=== PATIENT | female | born 1975 | race Caucasian/White ===

== ENCOUNTER → 2018-08-09 | Outpatient (CLI) | payer OTHER ==
--- NOTE | 2018-08-09 14:49 | MM ---
Reason for exam: screening (asymptomatic). Baseline mammogram. History: Family history of breast cancer in maternal grandmother. Took hormonal contraceptives beginning at age 18. Physical Findings: Nurse did not find any significant physical abnormalities on exam. MG Screening Mammo w CAD Bilateral CC and MLO view(s) were taken. The breast tissue is heterogeneously dense. This may lower the sensitivity of mammography. No significant findings. These results were verbally communicated with the patient and result sheet given to the patient on 08/09/18. ASSESSMENT: Benign, BI-RAD 2 RECOMMENDATION: Routine screening mammogram of both breasts in 1 year.
== END | disposition home or self-care (01) ==
LOC: RADMAMWWP 14:03
PROVIDERS: ATTEND Family Medicine
DX: Z12.31 Encounter for screening mammogram for malignant neoplasm of breast (principal)
CPT/HCPCS: 77067

== ENCOUNTER → 2019-08-16 | Outpatient (CLI) | payer OTHER ==
--- NOTE | 2019-08-20 09:10 | MM ---
Reason for exam: screening (asymptomatic). Last mammogram was performed 1 year ago. History: Family history of breast cancer in maternal grandmother. Took hormonal contraceptives beginning at age 18. Physical Findings: A clinical breast exam by your physician is recommended on an annual basis and results should be correlated with mammographic findings. MG Screening Mammo w CAD Bilateral CC and MLO view(s) were taken. Prior study comparison: August 09, 2018, bilateral MG screening mammo w CAD. There are scattered fibroglandular densities. No significant changes when compared with prior studies. ASSESSMENT: Benign, BI-RAD 2 RECOMMENDATION: Routine screening mammogram of both breasts in 1 year.
== END | disposition home or self-care (01) ==
LOC: RADMAMWWP 16:30
PROVIDERS: ATTEND Family Medicine
DX: Z12.31 Encounter for screening mammogram for malignant neoplasm of breast (principal)
CPT/HCPCS: 77067

== ENCOUNTER → 2022-12-28 | Outpatient (CLI) | payer OTHER ==
--- NOTE | 2022-12-28 19:15 | US ---
EXAMINATION TYPE: US transvaginal DATE OF EXAM: 12/28/2022 COMPARISON: NONE CLINICAL INDICATION: Female, 47 years old with history of N92.1 EXCESSIVE AND FREQUENT MENSTRUATION; very heavy periods since last 2006, last 2 births via TECHNIQUE: Transvaginal (TVTransvaginal sonographic images were medically necessary to better assess the following anatomy: Endometrium Date of LMP: 12/26/2022 EXAM MEASUREMENTS: Uterus: 9.1x4.3x6.2cm Endometrial Stripe: 1.9cm Right Ovary: 3.6x2.3x2.4cm Left Ovary: 3.4x3.3x3.0cm 1. Uterus: Retroverted. Extrusion Press Supervisor notes: Partially obscured by bowel and shadowing, difficult to a ssess due to retroversion. Small 5 mm cervical nabothian cysts. 2. Endometrium: thickened, heterogenous, appears to have vascularity within 3. Right Ovary: wnl 4. Left Ovary: anechoic area measured: 3.7x2.2x3.2cm 5. Bilateral Adnexa: wnl 6. Posterior cul-de-sac: wnl IMPRESSION: 1. Heterogeneous and thickened endometrium at 1.9 cm. This should correspond to the late secretory ph ase of menstrual cycle. Underlying endometrial hyperplasia is possible. Follow-up in 6-8 weeks to piero ssess thickness. 2. A 3.7 cm dominant follicle or functional cyst of the left ovary.
== END | disposition home or self-care (01) ==
LOC: RADUSWWP 13:25
PROVIDERS: ATTEND Family Medicine
DX: N92.1 Excessive and frequent menstruation with irregular cycle (principal); N83.202 Unspecified ovarian cyst, left side; R93.89 Abnormal findings on diagnostic imaging of other specified body structures
CPT/HCPCS: 76830

== ENCOUNTER → 2023-03-18 | Outpatient (CLI) | payer BC, OTHER ==
--- NOTE | 2023-03-18 10:44 | US ---
EXAMINATION TYPE: US transvaginal DATE OF EXAM: 03/18/2023 COMPARISON: [facility] 2022 CLINICAL INDICATION: Female, 47 years old with history of N92.0 EXCESSIVE AND FREQUENT MENSTRUATION W ITH REG; Recheck endometrium and left ovarian cyst TECHNIQUE: Transvaginal Exam only per patient's order Date of LMP: 2-3 weeks ago EXAM MEASUREMENTS: Uterus: 9.5 x 5.1 x 5.1 cm Endometrial Stripe: 1.5 cm Right Ovary: not seen Left Ovary: 2.4 x 1.7 x 1.6 cm 1. Uterus: anteverted, heterogeneous, multiple nabothian cysts 2. Endometrium: mildly thickened 3. Right Ovary: not seen due to overlying bowel gas 4. Left Ovary: wnl 5. Bilateral Adnexa: wnl 6. Posterior cul-de-sac: small amount of free fluid IMPRESSION: 1. Heterogenous uterine myometrium could reflect small change. 2. Mildly thickened endometrium.
== END | disposition home or self-care (01) ==
LOC: RADUSWWP 09:49
PROVIDERS: ATTEND Family Medicine
DX: N92.0 Excessive and frequent menstruation with regular cycle (principal); R93.89 Abnormal findings on diagnostic imaging of other specified body structures
CPT/HCPCS: 76830

== ENCOUNTER → 2024-03-12 | Outpatient (CLI) | payer OTHER ==
--- NOTE | 2024-03-13 08:52 | MR ---
EXAMINATION TYPE: MR knee RT wo con DATE OF EXAM: 03/12/2024 COMPARISON: None HISTORY: Right knee pain x 3 mos, no trauma. TECHNIQUE: Multiplanar, multisequence imaging of the right knee is performed without IV contrast. FINDINGS: MEDIAL MENISCUS: I Cannot exclude a radial tear involving the body of the medial meniscus. Medial men iscus is otherwise intact. LATERAL MENISCUS: Anterior and posterior horns are intact without tear. CRUCIATE LIGAMENTS: The anterior and posterior cruciate ligaments are intact and unremarkable. COLLATERAL LIGAMENTS: The medial collateral ligament and lateral collateral ligament complex are inta ct and unremarkable. EXTENSOR MECHANISM: Visualized quadriceps and patellar tendons are intact. EFFUSION: No significant suprapatellar joint effusion. POPLITEAL CYST: No popliteal/madden cyst. TRICOMPARTMENT SPACES: Intact CARTILAGE: Intact BONE MARROW SIGNAL: No focal abnormal marrow signal is appreciated. OTHER: No additional significant abnormality is appreciated. IMPRESSION: I Cannot exclude a radial tear involving the body of the medial meniscus. Medial meniscus is otherwis e intact. [facility], , 03/13/2024 8:49 AM
== END | disposition home or self-care (01) ==
LOC: RADMRIMAIN 11:06
PROVIDERS: ATTEND Family Medicine
DX: M25.561 Pain in right knee (principal)

== ENCOUNTER → 2024-06-27 | Outpatient (CLI) | payer MEDICAID ==
[2024-06-27 16:49] LABS: BUN/Creat Ratio 14.29 Ratio (12.00-20.00); Calcium 8.7 mg/dL (8.7-10.3); Chloride 105 mmol/L (96-109); Glucose 92 mg/dL (70-110); Potassium 4.6 mmol/L (3.5-5.5); Sodium 140 mmol/L (135-145)
[2024-06-27 17:23] LABS: Basophils # (A) 0.01 X 10*3/uL (0.00-0.10); Basophils % (A) 0.3 %; Eosinophils % (A) 3.1 %; HGB 12.6 g/dL (12.0-15.0); Lymphocytes # (A) 0.79 X 10*3/uL (0.90-5.00); Lymphocytes % (A) 24.8 %; MCH 28.3 pg (27.0-32.0); MCHC 33.2 g/dL (32.0-37.0); MCV 85.2 FL (80.0-97.0); Mean Platelet Volume 10.3 FL (9.5-12.2); Monocytes # (A) 0.45 X 10*3/uL (0.20-1.00); Monocytes % (A) 14.1 %; NRBC Per 100 WBC 0 X 10*3/uL (0.00-0.01); Neutrophils # (A) 1.83 X 10*3/uL (1.80-7.70); Neutrophils % (A) 57.4 %; Platelet Count 260 X 10*3/uL (140-440); RBC 4.46 X 10*6/uL (4.10-5.20); RDW 13.4 % (11.5-14.5); WBC 3.19 X 10*3/uL (4.50-10.00)
== END | disposition home or self-care (01) ==
LOC: LABWHC1 09:14
PROVIDERS: ATTEND Orthopaedic Surgery
DX: Z01.818 Encounter for other preprocedural examination (principal); M23.91 Unspecified internal derangement of right knee
CPT/HCPCS: 36415; 80048; 85025; 93005